=== PATIENT | female | born 1995 | race Hispanic/Latino ===

== ENCOUNTER 2017-07-13 17:43 | Emergency (ER) | payer MEDICAID ==
[~2017-07-13] VITALS: Ht 165.1 cm; Wt 80.0 kg
[2017-07-13] MEDS ORDERED: PROAIR HFA108 MCG/AC PO (18:29)
[2017-07-13 18:55] VITALS: BP 116/65
== END 2017-07-13 19:00 | disposition home or self-care (01) | DRG 781 ==
LOC: ED 17:43
DX: O26.892 Other specified pregnancy related conditions, second trimester (principal); J45.901 Unspecified asthma with (acute) exacerbation; Z3A.19 19 weeks gestation of pregnancy; R06.02 Shortness of breath

== ENCOUNTER 2017-07-27 16:51 | Emergency (ER) | payer MEDICAID ==
[~2017-07-27] VITALS: Ht 165.1 cm; Wt 66.4 kg
[~2017-07-27 16:51] MED LIST: PROAIR HFA108 MCG/AC PO
[2017-07-27 17:54] LABS: INFLUENZA A POSITIVE (NONE DETECT); INFLUENZA B POSITIVE (NONE DETECT)
[2017-07-27] MEDS ORDERED: ZOFRAN ODT4 MG PO (17:56)
[2017-07-27] MEDS ORDERED: TAM75CAP PO (17:56)
[2017-07-27 18:11] VITALS: BP 120/65
== END 2017-07-27 18:05 | disposition home or self-care (01) | DRG 781 ==
LOC: ED 16:51
PROVIDERS: Emergency Medicine
DX: O98.512 Other viral diseases complicating pregnancy, second trimester (principal); J10.1 Influenza due to other identified influenza virus with other respiratory manifestations; Z3A.21 21 weeks gestation of pregnancy; R11.2 Nausea with vomiting, unspecified; R05 Cough; R06.02 Shortness of breath

== ENCOUNTER 2020-10-17 11:27 | Emergency (ER) | payer MEDICAID ==
[~2020-10-17] VITALS: Ht 165.1 cm; Wt 68.0 kg
[~2020-10-17 11:27] MED LIST changes: +TAM75CAP PO; +ZOFRAN ODT4 MG PO
[2020-10-17] MEDS ORDERED: PERMETHRIN5 % EX ×2 (11:32→11:36)
[2020-10-17 11:41] VITALS: BP 110/70
== END 2020-10-17 11:52 | disposition home or self-care (01) ==
LOC: ED 11:27
DX: B86 Scabies (principal); J45.909 Unspecified asthma, uncomplicated

== ENCOUNTER 2020-11-09 15:54 | Emergency (ER) | payer MEDICAID ==
[~2020-11-09] VITALS: Ht 165.1 cm; Wt 77.0 kg
[~2020-11-09 15:54] MED LIST changes: +PERMETHRIN5 % EX
[2020-11-09 16:19] LABS: HEMATOCRIT 33.8 % (37.0-47.0); HEMOGLOBIN 11.1 g/dl (12.0-16.0); IMMATURE GRANULOCYTES 0.1 % (0.0-5.0); MEAN CELL VOLUME 79.9 fL CALC (80.0-100.0); MEAN CORPUSCULAR HGB 26.2 pG CALC (26.0-32.0); MEAN CORPUSCULAR HGB CONC 32.8 g/dL CAL (32.0-36.0); NEUT# 5.26 thou/uL (2.00-7.15); RED BLOOD COUNT 4.23 mill/uL (4.20-5.60); RED CELL DISTRI WIDTH 14.3 % (11.5-15.5)
[2020-11-09 16:20] LABS: URINE BLOOD DIPSTICK NEGATIVE (NEGATIVE); URINE COLOR YELLOW; URINE GLUCOSE - DIPSTICK NEGATIVE (NEGATIVE); URINE KETONE >=80 mg/dL (NEGATIVE); URINE LEUK ESTERASE NEGATIVE (NEGATIVE); URINE PROTEIN - DIPSTICK TRACE mg/dL (NEG-TRACE); URINE SPECIFIC GRAVITY 1.015; URINE UROBILINOGEN - DIPSTICK >=8.0 E.U./dL (0.2)
[2020-11-09 16:21] LABS: URINE BILIRUBIN - DIPSTICK SMALL (NEGATIVE); URINE NITRITE - DIPSTICK NEGATIVE (Negative)
[2020-11-09 16:32] LABS: ALBUMIN 4.3 g/dL (3.2-5.0); ALKALINE PHOSPHATASE 90 u/l (38-126); AMYLASE 85 u/l (30-110); ANION GAP 14 (6-22 (CALC)); BILIRUBIN, TOTAL 0.4 mg/dL (0.0-1.4); BUN 11 mg/dL (7-17); BUN/CREATININE RATIO 25 (12-20 (CALC)); CARBON DIOXIDE 22 mmol/l (22-30); CHLORIDE 99 mmol/l (95-108); CREATININE 0.4 mg/dL (0.5-1.0); GFR > 60 ML/MIN (>=60 (CALC)); GFR FOR AFR.AMER. > 60 ML/MIN (>=60 (CALC)); LIPASE 71 u/l (23-300); POTASSIUM 3.2 mmol/l (3.5-5.1); SGOT/AST 17 u/l (14-36); SODIUM 133 mmol/l (137-146); TOTAL PROTEIN 7.9 g/dL (6.3-8.2)
[2020-11-09] MEDS ORDERED: ONDANSETRON4 MG PO (16:58)
[2020-11-09 17:01] VITALS: BP 122/68
[2020-11-09 17:13] LABS: BETA-HCG, QUANT(RESULT NUMBER) 79459 mIU/mL
== END 2020-11-09 17:09 | disposition home or self-care (01) ==
LOC: ED 15:54
PROVIDERS: Emergency Medicine
DX: O21.9 Vomiting of pregnancy, unspecified (principal); O99.280 Endocrine, nutritional and metabolic diseases complicating pregnancy, unspecified trimester; E87.6 Hypokalemia; O99.519 Diseases of the respiratory system complicating pregnancy, unspecified trimester; J45.909 Unspecified asthma, uncomplicated; Z3A.00 Weeks of gestation of pregnancy not specified; Z20.822 Contact with and (suspected) exposure to COVID-19

== ENCOUNTER 2020-12-15 09:29 | Emergency (ER) | payer MEDICAID ==
[~2020-12-15 09:29] MED LIST changes: +ONDANSETRON4 MG PO
[2020-12-15 10:15] LABS: HEMATOCRIT 30.6 % (37.0-47.0); HEMOGLOBIN 9.9 g/dl (12.0-16.0); IMMATURE GRANULOCYTES 0.1 % (0.0-5.0); MEAN CELL VOLUME 82.3 fL CALC (80.0-100.0); MEAN CORPUSCULAR HGB 26.6 pG CALC (26.0-32.0); MEAN CORPUSCULAR HGB CONC 32.4 g/dL CAL (32.0-36.0); NEUT# 5.19 thou/uL (2.00-7.15); RED BLOOD COUNT 3.72 mill/uL (4.20-5.60); RED CELL DISTRI WIDTH 14.1 % (11.5-15.5)
[2020-12-15 10:27] LABS: URINE BILIRUBIN - DIPSTICK NEGATIVE (NEGATIVE); URINE BLOOD DIPSTICK SMALL (NEGATIVE); URINE COLOR YELLOW; URINE GLUCOSE - DIPSTICK NEGATIVE (NEGATIVE); URINE KETONE NEGATIVE (NEGATIVE); URINE LEUK ESTERASE NEGATIVE (NEGATIVE); URINE PROTEIN - DIPSTICK NEGATIVE (NEG-TRACE); URINE SPECIFIC GRAVITY >=1.030; URINE UROBILINOGEN - DIPSTICK 0.2 E.U./dL (0.2)
[2020-12-15 10:32] LABS: ALBUMIN 3.6 g/dL (3.2-5.0); ALKALINE PHOSPHATASE 83 u/l (38-126); ANION GAP 11 (6-22 (CALC)); BUN 10 mg/dL (7-17); BUN/CREATININE RATIO 24 (12-20 (CALC)); CARBON DIOXIDE 23 mmol/l (22-30); CHLORIDE 103 mmol/l (95-108); CREATININE 0.4 mg/dL (0.5-1.0); GFR > 60 ML/MIN (>=60 (CALC)); GFR FOR AFR.AMER. > 60 ML/MIN (>=60 (CALC)); LIPASE 48 u/l (23-300); POTASSIUM 3.3 mmol/l (3.5-5.1); SGOT/AST 15 u/l (14-36); SODIUM 134 mmol/l (137-146); TOTAL PROTEIN 7.3 g/dL (6.3-8.2)
[2020-12-15 10:36] LABS: URINE EPITHELIAL CELLS FEW EPI/hpf (0-FEW); URINE NITRITE - DIPSTICK NEGATIVE (Negative)
[2020-12-15 10:41] LABS: BILIRUBIN, TOTAL 0.1 mg/dL (0.0-1.4)
[2020-12-15 11:15] LABS: BETA-HCG, QUANT(RESULT NUMBER) 91869 mIU/mL
[2020-12-15 13:49] VITALS: BP 101/50
== END 2020-12-15 13:55 | disposition home or self-care (01) ==
LOC: ED 09:29
PROVIDERS: Family Medicine
DX: O46.8X1 Other antepartum hemorrhage, first trimester (principal); O99.511 Diseases of the respiratory system complicating pregnancy, first trimester; J45.909 Unspecified asthma, uncomplicated; Z3A.10 10 weeks gestation of pregnancy